=== PATIENT | female | born 1995 | race Caucasian/White ===

== ENCOUNTER 2022-05-22 05:29 | Inpatient (IN) ==
--- NOTE | 2022-05-20 13:04 | Anesthesiology Consultation ---
Date of Service May 20, 2022 Assessment & Plan (1) Encounter for pre-operative examination: COVID screening: Per assessment on 05/20: No known COVID-19 positive contacts or current COVID-19 related symptoms. Travel screen negative. Chart Review Chart Review: data entry manager initiated History Surgery Operation Date: 05/22/22 07:30 Proposed Procedures p Section in LD - Jhon Zimmerman MD Height/Weight Height: 5 ft Weight: 92.079 kg Allergies Allergy/AdvReac Type Severity Reaction Status Date / Time No Known Allergies Allergy Verified 05/20/22 12:38 Medications Home Medications Medication Instructions Recorded Confirmed Last Taken acetaminophen 500 mg tablet 500 - 1,000 mg PO Q6H PRN Pain 05/20/22 05/20/22 Unknown (Acetaminophen Extra Strength) famotidine 20 mg tablet (Pepcid) 20 mg PO UD PRN Acid Reflux 05/20/22 05/20/22 Unknown eygrarfm-[id number]-FA 1 mg 1 tab PO DAILY 05/20/22 05/20/22 Unknown tablet Past Medical History Medical History GERD (gastroesophageal reflux disease) ONLY DURING PREGANCY History of COVID-19 09/2021>SYMPTOMS (COLD SYMTPOMS/RESOLVED) Past Family History Family History Other No family history of adverse response to anesthesia Past Surgical History Surgical History [place] teeth removed Social History Smoking Status: Former smoker Do You Dip or Chew Tobacco: No Smoking End Date: AT AGE 20 Hx Alcohol Use: No (NOT DURING ) substance use type: does not use
[2022-05-22] MEDS ORDERED: ceFAZolin 2,000 MG in SYRINGE 0 ML IV SCH (06:00)
[2022-05-22] MEDS ORDERED: LACTATED RINGER'S 1,000 ML IV SCH ×2 (06:00→09:16)
[2022-05-22] MEDS ORDERED: CITRIC ACID/SODIUM CITRATE 15 ML UDC PO SCH (06:00)
[2022-05-22 06:02] LABS: Basophils # (auto) 0.04 K/uL (0-0.2); Basophils % (auto) 0.3 %; Eosinophils # (auto) 0.13 K/uL (0-0.50); Eosinophils % (auto) 0.9 %; Hematocrit (blood only) 33.9 % (34.1-44.9); Hemoglobin 11.4 g/dl (12.0-16.0); Immature Granulocytes # (auto) 0.18 K/uL (0.00-0.02); Immature Granulocytes % (auto) 1.3 %; Lymphocytes # (auto) 2.88 K/uL (1.2-3.4); Lymphocytes % (auto) 20.5 %; Mean Corpuscular Hemoglobin 29.8 pg (25.0-34.0); Mean Corpuscular Hgb Conc 33.6 g/dL (32.0-36.0); Mean Corpuscular Volume 88.5 fL (80.0-100.0); Mean Platelet Volume 10.9 fL (9.4-12.3); Monocytes # (auto) 1.37 K/uL (0.24-0.82); Monocytes % (auto) 9.7 %; Neutrophils # (auto) 9.47 K/uL (1.4-6.5); Neutrophils % (auto) 67.3 %; Platelet Count 274 K/uL (130-400); RDW Coefficient of Variation 12.8 % (11.5-14.5); RDW Standard Deviation 41.1 fL (36.4-46.3); Red Blood Count 3.83 M/uL (3.93-5.22); White Blood Count 14.07 K/ul (4.8-10.8)
[2022-05-22] MEDS ORDERED: fentaNYL citrate 100 MCG/2 ML VIAL ONE (07:04)
[2022-05-22] MEDS ORDERED: MoRPHine SULFATE PF 1 MG/ML 10 ML AMP/VIAL ONE (07:04)
--- NOTE | 2022-05-22 07:16 | History & Physical Bridge Note ---
Date of Service May 22, 2022 History & Physical Bridge Note I have examined the patient, reviewed the History & Physical and in the interval since the performance of the History & Physical I have noted the following changes of clinical significance: no changes noted
[2022-05-22] MEDS ORDERED: ONDANSETRON INJ 2 MG/ML 2 ML VIAL ONE (07:37)
[2022-05-22] MEDS ORDERED: KETOROLAC 30 MG/ML VIAL ONE (07:37)
[2022-05-22] MEDS ORDERED: OXYTOCIN 10 UNITS/ML VIAL ONE (07:37)
[2022-05-22] MEDS ORDERED: NALBUPHINE HCL INJ 10 MG/ML AMP IV PRN (08:11)
[2022-05-22] MEDS ORDERED: ePHEDrine sulfate 50 MG/ML AMP IV PRN (08:11)
[2022-05-22] MEDS ORDERED: LACTATED RINGER'S 500 ML IV PRN (08:11)
[2022-05-22] MEDS ORDERED: KETOROLAC 30 MG/ML VIAL IV PRN (08:11)
[2022-05-22] MEDS ORDERED: NALOXONE HCL 1 MG in SODIUM CHLORIDE 0.9% 1000ML 1,000 ML IV PRN (08:11)
[2022-05-22] MEDS ORDERED: diphenhydrAMINE 50 MG/ML VIAL IV PRN (08:11)
[2022-05-22] MEDS ORDERED: ONDANSETRON INJ 2 MG/ML 2 ML VIAL IV PRN ×2 (08:11→09:16)
[2022-05-22] MEDS ORDERED: MoRPHine SULFATE PF 1 MG/ML 10 ML AMP/VIAL INT SPINAL ONE (08:11)
[2022-05-22] MEDS ORDERED: NALOXONE HCL 0.08 MG in SYRINGE 1.8 ML IV PRN (08:11)
[2022-05-22] MEDS ORDERED: ACETAMINOPHEN 325 MG TAB PO PRN (08:11)
[2022-05-22] MEDS ORDERED: HYDROmorphone INJ 0.5 MG/0.5 ML SYR IV PRN (08:11)
[2022-05-22] MEDS ORDERED: NALOXONE HCL 0.4 MG/1 ML VIAL/CARP IV PRN (08:11)
[2022-05-22] MEDS ORDERED: PROMETHAZINE HCL 12.5 MG in SODIUM CHLORIDE 0.9% 50 ML IV PRN (08:11)
[2022-05-22] MEDS ORDERED: SODIUM CHLORIDE 0.9% 1000ML 1,000 ML IV SCH (08:15)
[2022-05-22] MEDS ORDERED: DC INTRASPINAL MORPHINE SCH (08:15)
[2022-05-22] MEDS ORDERED: NO NARCOTICS OR SEDATIVES SCH (08:15)
--- NOTE | 2022-05-22 08:42 | Post Operative Brief Note ---
Immediate Post Op Note v1 Date of Surgery May 22, 2022 Pre & Post Diagnosis Operation Date: 05/22/22 07:30 <No data on this case meets the specified criteria> I identified the patient and participated in the time-out.: Yes Procedure Operation Date: 05/22/22 07:30 <No data on this case meets the specified criteria> Surgeon Jhon Zimmerman MD Hr Business Partner Consultant Dr. Bhakta Estimated Blood Loss 500 Findings Consistent with Post-Op Diagnosis live female Apgars and weight pending Fluids LR 900 ml. Specimens placenta Drains Rhodes Catheter Complications nnone Disposition Accompanied Patient To Recovery: Yes Overlapping Procedure I was present for: the critical portions of procedure. I was immediately available: during the entire case. Back up surgeon: used during listed procedure.
--- NOTE | 2022-05-22 08:46 | Anesthesiology Progress Note ---
Date of Service May 22, 2022 Anesthesia Post Procedure Vital Signs Vital Signs: Temp Pulse Resp BP Pulse Ox 05/22/22 07:11 98.2 F 18 05/22/22 08:43 99 05/22/22 08:43 77 05/22/22 08:43 84 144/73 H 05/22/22 07:02 90 138/81 05/22/22 05:58 98.4 F 18 Transfer of Care Handoff Completed per policy Notes Mental Status: alert / awake / arousable and participated in evaluation Patient Amnestic to Procedure: Yes Nausea / Vomiting: adequately controlled Pain: adequately controlled Airway Patency, RR, SpO2: stable & adequate BP & HR: stable & adequate Hydration State: stable & adequate Neuraxial Anesthesia: was administered and sensory block is resolving Anesthetic Complications: no major complications apparent and Pt Satisfied with anesthetic care
[2022-05-22] MEDS ORDERED: FAMOTIDINE 20 MG TAB PO PRN (09:16)
[2022-05-22] MEDS ORDERED: HYDROCORTISONE ACETATE 25 MG SUPP PR PRN (09:16)
[2022-05-22] MEDS ORDERED: MAGNESIUM HYDROXIDE SUSP 30 ML UDC PO PRN (09:16)
[2022-05-22] MEDS ORDERED: PROMETHAZINE HCL 25 MG in SODIUM CHLORIDE 0.9% 50 ML IV PRN (09:16)
[2022-05-22] MEDS ORDERED: DIPHTHERIA/TETANUS/PERTUSSIS 0.5 ML SYR/VIAL IM ONE (09:16)
[2022-05-22] MEDS ORDERED: SENNA 8.6 MG TAB PO PRN (09:16)
[2022-05-22] MEDS ORDERED: NON-FORMULARY MEDICATION (Prenatal Multivit-Min-Fe-Fa 1 mg Tablet) PO SCH (09:16)
[2022-05-22] MEDS ORDERED: BENZOCAINE 20% AER SPR 82.5 GM CAN EXT PRN (09:16)
[2022-05-22] MEDS: OXYTOCIN 20 UNITS in LACTATED RINGER'S 1,000 ML IV SCH ×2 (11:09→20:03)
[2022-05-22] MEDS: SIMETHICONE 80 MG CHEW PO SCH ×2 (16:47→21:20)
[2022-05-22] MEDS: DOCUSATE SODIUM 100 MG CAP PO SCH (21:20)
--- NOTE | 2022-05-23 00:36 | Operative Report (OR) ---
DATE OF SURGERY: 05/22/2022 PREOPERATIVE DIAGNOSES: Term , breech. POSTOPERATIVE DIAGNOSES: Term , breech. PROCEDURE: Primary section, low segment transverse. SURGEON: Jhon Zimmerman MD. QUILL COLLECTOR: Geraldo Bhakta MD. ANESTHESIA: Spinal. COMPLICATIONS: None. FINDINGS: Live female, florina breech presentation, Apgars 2/9, weight pending. DRAINS: Rhodes. ESTIMATED BLOOD LOSS: 500 mL. FLUIDS: 900 mL. URINE OUTPUT: 200 mL. CLINICAL HISTORY: The patient is a 26-year-old female, para 0-0-0-0, at 40 weeks, admitted for an el ective primary section. The patient was scanned prior to the start of the procedure, confir swapna breech presentation. A timeout was called prior to the start of the procedure. Antibiotics wer e given preop. DESCRIPTION OF PROCEDURE: Under satisfactory spinal anesthesia, the patient was prepped and draped i n the usual sterile fashion. Low Pfannenstiel incision was made entering into the abdominal cavity i n successive layers without difficulty. Upon entering into the abdominal cavity, the bladder flap wa s made and this was sharply dissected down with Metzenbaum scissors. A low segment transverse incisi on over the lower uterine segment was made. Incision was widened in the AP diameter. Nicked the amn iotic sac, was noted to be clear. The infant was delivered from the florina breech presentation. The cord was doubly clamped and cut. There was a slight delay in cord clamping before the baby was lucita d to the insulation cupola charger for warming and resuscitation. Cord blood was obtained. Placenta delivered sp ontaneously and intact. Uterus was then exteriorized. Ring forceps were then placed on both angles in the inferior margin. Another ring was used to dilate the cervix. Clean lap was then used to curette the uterus of all jake ts and debris. Pitocin was started in the IV. The uterus was closed in a double layer closure with 0 Vicryl suture in a continuous interlocking fashion followed by second imbricating suture of 0 Vicry l suture. Tubes, ovaries bilaterally were found to be within normal limits. The contents of the pel carlos and abdominal cavity were then irrigated to clear. No active bleeding was noted. The initial sp onge, needle, and instrument count were found to be correct. The uterus was then placed back into th e normal anatomical position. The muscle was then reapproximated with 0 Vicryl in a oqkwwh-nd-fgyte fashion. No active bleeding wa s noted. The fascia was then reapproximated from both ends using 0 Vicryl suture in a continuous fas hion. Subcuticular layer was then irrigated. Bleeders were then cauterized. Subcuticular layer was then closed with 2-0 plain suture followed by jesus for the skin. Clear urine was noted from the Rhodes. The estimated blood loss 500 mL. The final sponge, needle and instrument count were found to be correct. The patient was then placed supine on a stretcher and taken to recovery room in stable c ondition. Please note, Dr. Bhakta was present for the surgery. He was needed for assistance at surgery includin g retraction, help with pushing the baby's abdomen for fundal pressure for delivery of the breech and helped with closure of the uterus and abdomen. Job ID: [id number]
[2022-05-23] MEDS ORDERED: KETOROLAC 30 MG/ML VIAL IV PRN (02:11)
[2022-05-23] MEDS ORDERED: diphenhydrAMINE 50 MG/ML VIAL IV PRN (02:11)
[2022-05-23] MEDS ORDERED: diphenhydrAMINE Capsule 25 MG CAP PO PRN (02:11)
[2022-05-23] MEDS ORDERED: MEPERIDINE HCL 50 MG/ML CARP IV PRN (02:11)
[2022-05-23] MEDS: oxyCODONE/ACETAMINOPHEN 5mg/325mg TAB PO PRN ×4 (03:14→20:47)
[2022-05-23] MEDS: IBUPROFEN 600 MG TAB PO PRN ×4 (03:15→20:48)
[2022-05-23 06:39] LABS: Basophils # (auto) 0.03 K/uL (0-0.2); Basophils % (auto) 0.2 %; Eosinophils # (auto) 0.05 K/uL (0-0.50); Eosinophils % (auto) 0.3 %; Hematocrit (blood only) 29.8 % (34.1-44.9); Hemoglobin 10.2 g/dl (12.0-16.0); Immature Granulocytes # (auto) 0.14 K/uL (0.00-0.02); Immature Granulocytes % (auto) 0.9 %; Lymphocytes # (auto) 1.76 K/uL (1.2-3.4); Lymphocytes % (auto) 10.8 %; Mean Corpuscular Hemoglobin 29.6 pg (25.0-34.0); Mean Corpuscular Hgb Conc 34.2 g/dL (32.0-36.0); Mean Corpuscular Volume 86.4 fL (80.0-100.0); Mean Platelet Volume 10.7 fL (9.4-12.3); Monocytes # (auto) 1.28 K/uL (0.24-0.82); Monocytes % (auto) 7.8 %; Neutrophils # (auto) 13.08 K/uL (1.4-6.5); Platelet Count 252 K/uL (130-400); RDW Coefficient of Variation 12.7 % (11.5-14.5); RDW Standard Deviation 39.8 fL (36.4-46.3); Red Blood Count 3.45 M/uL (3.93-5.22); White Blood Count 16.34 K/ul (4.8-10.8)
[2022-05-23] MEDS: PRENATAL VITAMIN 1 TAB PO SCH (07:44)
[2022-05-23] MEDS: SIMETHICONE 80 MG CHEW PO SCH ×4 (07:44→20:47)
[2022-05-23] MEDS: FERROUS SULFATE 325 MG TAB PO SCH (07:44)
[2022-05-23] MEDS: DOCUSATE SODIUM 100 MG CAP PO SCH ×2 (07:44→20:47)
--- NOTE | 2022-05-23 09:34 | Obstetrical Progress Note ---
Date of Service May 23, 2022 Assessment & Plan (1) delivery delivered: Post op Day #1 pt doing well continue day #1 care Subjective Ambulation: ambulating normally Voiding: no voiding problems Passing Gas:: Yes Diet Tolerance:: clear liquids Lochia:: Small Feeding Type:: breast feeding Review of Systems All systems reviewed & are unremarkable except as noted in HPI & below Physical Exam Constitutional WD/WN, vitals as above well developed and well nourished Eyes PERRL, conjunctivae normal, anicteric sclerae ENMT external ear and nose normal, oropharynx normal Neck trachea midline, no thyromegaly Respiratory normal respiratory effort, lungs clear to auscultation Cardiovascular RRR, no murmur, no edema Chest (Breasts) normal inspection/palpation of breasts Gastrointestinal (Abdomen) normal bowel sounds, soft, nontender, no hepatosplenomegaly Musculoskeletal no cyanosis or clubbing, extremities motor strength 5/5 Skin no rashes, warm and dry + incision (Clean,dry and intact) Neurologic patellar DTR's 2+ bilat, sensation intact Psychiatric A+Ox3, euthymic affect Genitourinary normal external appearance Lymphatic no cervical or axillary lymphadenopathy Results & Data ([facility]) Vital Signs (Past 12 Hours) Vital Signs Temp Pulse Resp BP Pulse Ox O2 Del Method 05/23/22 07:45 36.9 C 87 18 119/79 05/23/22 03:15 37.2 C 92 H 20 127/84 97 Room Air 05/23/22 02:15 16 96 05/23/22 01:15 16 95 05/23/22 00:15 18 96 05/22/22 23:15 18 98 05/22/22 23:04 36.9 C 88 16 115/75 96 Room Air 05/22/22 22:14 18 96
[2022-05-23] MEDS ORDERED: bisacodyL 5 MG TABEC PO SCH (20:00)
[2022-05-24] MEDS: oxyCODONE/ACETAMINOPHEN 5mg/325mg TAB PO PRN ×2 (04:54→11:12)
[2022-05-24] MEDS: IBUPROFEN 600 MG TAB PO PRN ×2 (04:55→11:13)
[2022-05-24 07:10] LABS: Hematocrit (blood only) 26.1 % (34.1-44.9); Hemoglobin 8.6 g/dl (12.0-16.0)
[2022-05-24] MEDS: FERROUS SULFATE 325 MG TAB PO SCH (08:39)
[2022-05-24] MEDS: DOCUSATE SODIUM 100 MG CAP PO SCH (08:39)
[2022-05-24] MEDS: PRENATAL VITAMIN 1 TAB PO SCH (08:39)
[2022-05-24] MEDS: SIMETHICONE 80 MG CHEW PO SCH (08:39)
[2022-05-24] MEDS ORDERED: bisacodyL 10 MG SUPP PR PRN (08:43)
--- NOTE | 2022-05-24 09:51 | Obstetrical Progress Note ---
Date of Service May 24, 2022 Assessment & Plan (1) delivery delivered: POD #2 pt doing well wishes to be dich home Subjective Ambulation: ambulating normally Voiding: no voiding problems Passing Gas:: Yes Diet Tolerance:: clear liquids Lochia:: Small Feeding Type:: breast feeding Review of Systems All systems reviewed & are unremarkable except as noted in HPI & below Physical Exam Constitutional WD/WN, vitals as above well developed and well nourished Eyes PERRL, conjunctivae normal, anicteric sclerae ENMT external ear and nose normal, oropharynx normal Neck trachea midline, no thyromegaly Respiratory normal respiratory effort, lungs clear to auscultation Cardiovascular RRR, no murmur, no edema Chest (Breasts) normal inspection/palpation of breasts Gastrointestinal (Abdomen) normal bowel sounds, soft, nontender, no hepatosplenomegaly Musculoskeletal no cyanosis or clubbing, extremities motor strength 5/5 Skin no rashes, warm and dry + incision (Clean,dry and intact) Neurologic patellar DTR's 2+ bilat, sensation intact Psychiatric A+Ox3, euthymic affect Genitourinary normal external appearance Lymphatic no cervical or axillary lymphadenopathy Results & Data ([facility]) Vital Signs (Past 12 Hours) Vital Signs Temp Pulse Resp BP O2 Del Method 05/24/22 07:15 36.8 C 91 H 20 115/78 Room Air 05/24/22 00:00 36.9 C 85 16 123/79 Room Air
== END 2022-05-24 11:35 | disposition home or self-care (01) | DRG 788 ==
LOC: 4S1 05:29 → EDSTATUS 07:30 → 4E2 12:12
DX: O32.1XX0 Maternal care for breech presentation, not applicable or unspecified; Z3A.40 40 weeks gestation of pregnancy; Z37.0 Single live birth; O48.0 Post-term pregnancy

== ENCOUNTER 2023-07-07 05:25 | Inpatient (IN) ==
--- NOTE | 2023-06-29 10:07 | Anesthesiology Consultation ---
Date of Service June 29, 2023 Assessment & Plan (1) Encounter for pre-operative examination: Plan - 05/22/22: SAB L3-L4 1 attempt. - Per medical manager on 06/29/2023: No known infectious disease contacts, current infectious disease symptoms in past 10 days or COVID positive test result in the past 90 days. Chart Review Chart Review: medical charge entry specialist initiated History Surgery Operation Date: 07/07/23 07:30 Proposed Procedures p Repeat Section - Lane Olsen MD Height/Weight Height: 5 ft 8 in Weight: 87.997 kg Allergies Allergy/AdvReac Type Severity Reaction Status Date / Time No Known Allergies Allergy Verified 06/29/23 09:24 Medications Home Medications Medication Instructions Recorded Confirmed Last Taken famotidine 20 mg tablet (Pepcid) 20 mg PO UD PRN Acid Reflux 05/20/22 06/29/23 05/22/22 [id number]-sti-[id number]-FA 1 mg 1 tab PO DAILY 05/20/22 06/29/23 05/21/22 tablet Past Medical History Medical History (Updated 06/29/23 @ 10:07 by Patricia Leach PA-C) GERD (gastroesophageal reflux disease) during per PAT RN History of COVID-19 09/2021>SYMPTOMS (COLD SYMPTOMS/RESOLVED) Past Family History Family History Other No family history of adverse response to anesthesia Past Surgical History Surgical History (Updated 06/29/23 @ 09:26 by Rona Soria) Hx of section [place] teeth removed Social History Smoking Status: Never smoker Do You Dip or Chew Tobacco: No Hx Alcohol Use: Yes (not while ) alcohol intake frequency: holidays/special occasions only Hx Substance Use: No substance use type: does not use
[2023-07-07] MEDS ORDERED: LACTATED RINGER'S 1,000 ML IV SCH ×2 (05:45→09:45)
[2023-07-07 05:56] LABS: Hematocrit (blood only) 32.2 % (37.0-47.0); Hemoglobin 11.2 g/dl (12.0-16.0); Mean Corpuscular Hemoglobin 30.2 pg (25.0-34.0); Mean Corpuscular Hgb Conc 34.8 g/dL (32.0-36.0); Mean Corpuscular Volume 86.8 fL (80.0-100.0); Mean Platelet Volume 11.1 fL (9.4-12.4); Platelet Count 184 K/uL (130-400); RDW Coefficient of Variation 13.7 % (11.5-14.5); Red Blood Count 3.71 M/uL (4.20-5.40); White Blood Count 11.82 K/ul (4.8-10.8)
[2023-07-07] MEDS ORDERED: INFLUENZA VIRUS QUADRIVALENT VACCINE (IIV4) 0.5 ML SYR IM ONE (05:57)
[2023-07-07] MEDS ORDERED: CITRIC ACID/SODIUM CITRATE 15 ML UDC PO SCH (06:00)
[2023-07-07] MEDS ORDERED: ceFAZolin 2000MG 2,000 MG/15 ML SYR IV SCH (06:00)
[2023-07-07 06:22] LABS: Basophils # (auto) 0.07 K/uL (0.00-0.20); Basophils % (auto) 0.6 %; Eosinophils # (auto) 0.05 K/uL (0.00-0.50); Eosinophils % (auto) 0.4 %; Immature Granulocytes # (auto) 0.11 K/uL (0.01-0.20); Immature Granulocytes % (auto) 0.9 %; Lymphocytes # (auto) 5.31 K/uL (1.20-3.40); Lymphocytes % (auto) 44.9 %; Monocytes # (auto) 0.96 K/uL (0.11-0.59); Monocytes % (auto) 8.1 %; Neutrophils # (auto) 5.32 K/uL (1.40-6.50); Neutrophils % (auto) 45.1 %; Polychromasia 1+
[2023-07-07] MEDS ORDERED: OXYTOCIN 10 UNITS/ML VIAL ONE (06:53)
[2023-07-07] MEDS ORDERED: ONDANSETRON INJ 2 MG/ML 2 ML VIAL ONE (06:53)
[2023-07-07] MEDS ORDERED: fentaNYL citrate PF 100 MCG/2 ML VIAL ONE (06:53)
[2023-07-07] MEDS ORDERED: KETOROLAC 30 MG/ML VIAL ONE (06:53)
[2023-07-07] MEDS ORDERED: MoRPHine SULFATE PF 1 MG/ML 10 ML AMP/VIAL ONE (06:53)
[2023-07-07] MEDS ORDERED: PHENYLEPHRINE HCL 10 MG/ML VIAL ONE (06:53)
--- NOTE | 2023-07-07 07:42 | History & Physical Bridge Note ---
Date of Service July 07, 2023 History & Physical Bridge Note I have examined the patient, reviewed the History & Physical and in the interval since the performance of the History & Physical I have noted the following changes of clinical significance: no changes noted
[2023-07-07] MEDS ORDERED: NALOXONE HCL 1 MG in SODIUM CHLORIDE 0.9% 1,000 ML IV PRN (08:24)
[2023-07-07] MEDS ORDERED: MoRPHine SULFATE PF 1 MG/ML 10 ML AMP/VIAL INT SPINAL ONE (08:24)
[2023-07-07] MEDS ORDERED: NALOXONE HCL 0.4 MG/1 ML VIAL/CARP IV PRN (08:24)
[2023-07-07] MEDS ORDERED: LACTATED RINGER'S 500 ML IV PRN (08:24)
[2023-07-07] MEDS ORDERED: diphenhydrAMINE 50 MG/ML VIAL IV PRN (08:24)
[2023-07-07] MEDS ORDERED: KETOROLAC 30 MG/ML VIAL IV PRN (08:24)
[2023-07-07] MEDS ORDERED: ePHEDrine sulfate 50 MG/ML AMP IV PRN (08:24)
[2023-07-07] MEDS ORDERED: NALOXONE HCL 0.08 MG in SYRINGE 1.8 ML IV PRN (08:24)
[2023-07-07] MEDS ORDERED: NALBUPHINE HCL INJ 10 MG/ML AMP IV PRN (08:24)
[2023-07-07] MEDS ORDERED: ACETAMINOPHEN 1,000 MG/100 ML VIAL IV PRN (08:24)
[2023-07-07] MEDS ORDERED: HYDROmorphone INJ 0.5 MG/0.5 ML SYR IV PRN (08:24)
[2023-07-07] MEDS ORDERED: PROMETHAZINE HCL 12.5 MG in SODIUM CHLORIDE 0.9% 50 ML IV PRN (08:24)
[2023-07-07] MEDS ORDERED: ONDANSETRON INJ 2 MG/ML 2 ML VIAL IV PRN (08:24)
[2023-07-07] MEDS ORDERED: NO NARCOTICS OR SEDATIVES SCH (08:30)
[2023-07-07] MEDS ORDERED: DC INTRASPINAL MORPHINE SCH (08:30)
[2023-07-07] MEDS ORDERED: SODIUM CHLORIDE 0.9% 1,000 ML IV SCH (08:30)
[2023-07-07] MEDS ORDERED: OXYTOCIN 10 UNITS/ML 10ML VIAL IM ONE (09:12)
[2023-07-07 09:25] LABS: Base Excess Cord Arterial Bld -2.4 mEq/L (-9-1.8); CO2 Cord Arterial Blood 42 mmHg (39.1-73.5); HCO3 Cord Arterial Blood 23 mmol/L (19.7-28.5); Oxygen Sat Cord Arterial Blood < 60.0 % (<60); PO2 Cord Arterial Blood < 20 mmHg (4.1-31.7); pH Cord Arterial Blood 7.35 (7.1-7.38)
[2023-07-07 09:26] LABS: Base Excess Cord Venous Blood -4.4 mEq/L (-7.7-1.9); Cord Venous Blood HCO3 20 mmol/L (18.4-26.8); Cord Venous Blood PCO2 35 mmHg (30.4-57.2); Cord Venous Blood PO2 41 mmHg (14.1-43.3); Cord Venous Blood pH 7.37 (7.20-7.44); O2 Saturation Cord Venous Bld 79.2 % (<68)
[2023-07-07] MEDS ORDERED: DIPHTHERIA/TETANUS/PERTUSSIS Vaccine (Tdap, Age 7+yrs) 0.5mL SYR/VL IM ONE (09:44)
[2023-07-07] MEDS ORDERED: BENZOCAINE 20% SPRY 85 APPLN/85 GM CAN EXT PRN (09:44)
[2023-07-07] MEDS ORDERED: SENNA 8.6 MG TAB PO PRN (09:44)
[2023-07-07] MEDS ORDERED: MAGNESIUM HYDROXIDE SUSP 30 ML UDC PO PRN (09:44)
[2023-07-07] MEDS ORDERED: HYDROCORTISONE ACETATE 25 MG SUPP PR PRN (09:44)
--- NOTE | 2023-07-07 09:55 | Operative Report ---
Post Operative Report Pre & Post Diagnosis Operation Date: 07/07/23 07:30 Pre-Op Diagnosis: Previous Post-Op Diagnosis: Previous I identified the patient and participated in the time-out.: Yes Procedure Operation Date: 07/07/23 07:30 Actual Procedures p Repeat Section of live female child at 0843 - Lane Olsen MD Surgeon Lane Olsen MD Therapy Aide Hailey HERNANDEZ Estimated Blood Loss 500 Findings Consistent with Post-Op Diagnosis Live in cephalic presentation. Mild meconium on AROM> uterus, tubes and adnexa appeared grossly nml. Minimal adhesions from prior surgery Fluids IVF; 1200ml EBL; 500 Urine output 250 clear urine at end of procedure Specimens Cord, blood and gasses Drains none Anesthesia Type Spinal Complications none Indications at term Prior section. Wishes to have repeat Description of Procedure Patient brought to the operating room Prepped and draped in normal sterile fashion in dorsal supine position with a leftward tilt. Time out is performed. Patient is identified by name and date of . Allergy and antibiotics and reviewed and confirmed. Skin check is performed to see if anesthesia is adequate A Pfannenstiel incision is made and carried out to the fascia with a scalpel. Fascia is incised in the midline extended laterally on both sides with Rothman scissors. Linda's were used to grab the superior part of the fascial incision and the rectus abdominis muscle dissected with Rothman scissors.. Same procedure was performed on the lower section of the fascia. The rectus muscle is then in the midline and the peritoneum identified, tented up and entered sharply with the Metzenbaum scissors. The peritoneal incision was then extended superiorly and inferiorly with good visualization of the bladder. An Andrew retractor was then inserted to provide better visualization and retraction. Vesicouterine peritoneum was identified, grasped with pickups and entered sharply with Metzenbaum scissors. The incision was then extended laterally and the bladder flap created with Metzenbaum scissors. The lower uterine segment incision was performed in a transverse fashion with a scalpel. Uterine incision was then extended laterally with the bandage scissors. Amniotomy is performed. Amniotic fluid is mildly meconium stained. The infant's head was delivered atraumatically. There were 2 tight nuchal cord that could not be easily reduced. This was therefore clamped and cut . Nose and mouth suctioned with the bulb suction. Infant is handed over to the waiting pediatric team. Cord blood and gases obtained The placenta is then removed manually the uterus is exteriorized and cleared of all clots and debris. Uterine incision it repaired with 0-Vicryl in a locking fashion. A second layer of 0-Vicryl is used to obtain excellent hemostasis. Uterus is placed back into the abdominal cavity. The bladder flap was repaired in a running fashion with plain suture. Copious amount of irrigation was used to irrigate the abdomen. Gutters were cleared of all clots and debris . Hemostasis was obtained. The Anrdew retractor is removed as well as sponges or instruments in the abdomen. The peritoneum was identified and closed in a running fashion using plain suture. The rectus abdominis muscle was examined to ensure there no bleeding. The rectus abdominis muscle was approximated loosely using plain suture in a jwekci-qe-yxyno manner. Once again hemostasis is confirmed. The fascia was grasped with Houston's and closed in a running fashion. Both fascial layers are closed together using 0-Vicryl suture. Subcutaneous space is irrigated and hemostasis was confirmed. Subcutaneous space is approximated with plain suture. Skin is closed with jesus. The patient tolerated procedure well sponge just labs needle counts were correct x2 patient is sent to recovery in stable condition I attest to the content of the Intraoperative Record and any orders documented therein. Any exceptions are noted below. Therapy Aide was necessary for retraction and manipulation of instruments in order to provide for a safe operation
--- NOTE | 2023-07-07 09:58 | Anesthesiology Progress Note ---
Date of Service July 07, 2023 Anesthesia Post Procedure Vital Signs Vital Signs: Temp Pulse Resp BP Pulse Ox 07/07/23 09:56 57 L 99 07/07/23 09:51 54 L 96 07/07/23 09:47 56 L 124/66 07/07/23 09:46 63 100 07/07/23 09:41 63 100 07/07/23 09:38 60 94 07/07/23 09:36 62 99 07/07/23 09:37 62 127/64 07/07/23 07:00 20 07/07/23 07:00 98.1 F 20 07/07/23 06:55 57 L 123/75 07/07/23 06:04 98.2 F 63 126/73 Transfer of Care Handoff Completed per policy Notes Mental Status: alert / awake / arousable and participated in evaluation Patient Amnestic to Procedure: No Nausea / Vomiting: adequately controlled Pain: adequately controlled Airway Patency, RR, SpO2: stable & adequate BP & HR: stable & adequate Hydration State: stable & adequate Neuraxial Anesthesia: was administered and sensory block is resolving Anesthetic Complications: no major complications apparent and Pt Satisfied with anesthetic care
[2023-07-07] MEDS ORDERED: miSOPROStoL 200 MCG TAB PR ONE (10:00)
[2023-07-07] MEDS ORDERED: OXYTOCIN 20 UNITS in LACTATED RINGER'S 1,000 ML IV SCH (10:30)
[2023-07-07] MEDS: SIMETHICONE 80 MG CHEW PO SCH ×3 (12:23→21:27)
[2023-07-07] MEDS ORDERED: miSOPROStoL 200 MCG TAB ONE (12:55)
[2023-07-07] MEDS: DOCUSATE SODIUM 100 MG CAP PO SCH (21:27)
[2023-07-08] MEDS ORDERED: ONDANSETRON INJ 2 MG/ML 2 ML VIAL IV PRN (02:24)
[2023-07-08] MEDS ORDERED: diphenhydrAMINE 50 MG/ML VIAL IV PRN (02:24)
[2023-07-08] MEDS ORDERED: diphenhydrAMINE Capsule 25 MG CAP PO PRN (02:24)
[2023-07-08] MEDS ORDERED: PROMETHAZINE HCL 25 MG in SODIUM CHLORIDE 0.9% 50 ML IV PRN (02:24)
[2023-07-08] MEDS: oxyCODONE/ACETAMINOPHEN 5mg/325mg TAB PO PRN ×5 (02:55→21:48)
[2023-07-08] MEDS: IBUPROFEN 600 MG TAB PO PRN ×5 (02:55→21:48)
[2023-07-08 06:18] LABS: Basophils # (auto) 0.06 K/uL (0.00-0.20); Basophils % (auto) 0.6 %; Eosinophils # (auto) 0.03 K/uL (0.00-0.50); Eosinophils % (auto) 0.3 %; Hemoglobin 10.1 g/dl (12.0-16.0); Immature Granulocytes # (auto) 0.08 K/uL (0.01-0.20); Immature Granulocytes % (auto) 0.7 %; Lymphocytes # (auto) 3.83 K/uL (1.20-3.40); Lymphocytes % (auto) 35.3 %; Mean Corpuscular Hemoglobin 29.4 pg (25.0-34.0); Mean Corpuscular Hgb Conc 33.7 g/dL (32.0-36.0); Mean Corpuscular Volume 87.5 fL (80.0-100.0); Mean Platelet Volume 10.7 fL (9.4-12.4); Monocytes # (auto) 0.83 K/uL (0.11-0.59); Monocytes % (auto) 7.7 %; Neutrophils # (auto) 6.01 K/uL (1.40-6.50); Neutrophils % (auto) 55.4 %; Platelet Count 182 K/uL (130-400); RDW Coefficient of Variation 13.9 % (11.5-14.5); RDW Standard Deviation 43.1 fL (36.4-46.3); Red Blood Count 3.43 M/uL (4.20-5.40); White Blood Count 10.84 K/ul (4.8-10.8)
--- NOTE | 2023-07-08 08:18 | Obstetrical Progress Note ---
Date of Service July 08, 2023 Assessment & Plan (1) Normal course: Continue routine care Anticipate discharge home tomorrow Subjective Ambulation: ambulating normally Voiding: no voiding problems Passing Gas:: Yes Diet Tolerance:: clear liquids Lochia:: Small Feeding Type:: breast feeding Current Pain Level(1-10): 0 Patient doing well at this time, has not had a regular diet, but planning to get breakfast this morning. Is pumping and supplementing with formula No other complaints at this time Physical Exam Constitutional WD/WN, vitals as above Respiratory normal respiratory effort, lungs clear to auscultation Cardiovascular RRR, no murmur, no edema Gastrointestinal (Abdomen) normal bowel sounds, soft, nontender, no hepatosplenomegaly Incision covered with simba dressing, dry Skin no rashes, warm and dry Results & Data Vital Signs (Past 12 Hours) Vital Signs Temp Pulse Resp BP Pulse Ox O2 Del Method 07/08/23 02:25 16 98 07/08/23 03:15 36.8 C 81 20 126/82 98 Room Air 07/08/23 01:18 16 94 07/08/23 00:30 16 98 07/07/23 23:40 16 95 07/07/23 22:55 36.7 C 73 18 110/72 95 Room Air 07/07/23 22:30 18 96 07/07/23 21:30 18 95 Laboratory Results Laboratory Results WBC 10.84 K/ul (4.8-10.8) H 07/08/23 06:04 RBC 3.43 M/uL (4.20-5.40) L 07/08/23 06:04 Hgb 10.1 g/dl (12.0-16.0) L 07/08/23 06:04 Hct 30.0 % (37.0-47.0) L 07/08/23 06:04 MCV 87.5 fL (80.0-100.0) 07/08/23 06:04 MCH 29.4 pg (25.0-34.0) 07/08/23 06:04 MCHC 33.7 g/dL (32.0-36.0) 07/08/23 06:04 RDW Std Deviation 43.1 fL (36.4-46.3) 07/08/23 06:04 RDW Coeff of [place] 13.9 % (11.5-14.5) 07/08/23 06:04 Plt Count 182 K/uL (130-400) 07/08/23 06:04 MPV 10.7 fL (9.4-12.4) 07/08/23 06:04 Immature Gran % (Auto) 0.7 % 07/08/23 06:04 Neut % (Auto) 55.4 % 07/08/23 06:04 Lymph % (Auto) 35.3 % 07/08/23 06:04 [place] % (Auto) 7.7 % 07/08/23 06:04 Eos % (Auto) 0.3 % 07/08/23 06:04 Baso % (Auto) 0.6 % 07/08/23 06:04 Neut # (Auto) 6.01 K/uL (1.40-6.50) 07/08/23 06:04 Lymph # (Auto) 3.83 K/uL (1.20-3.40) H 07/08/23 06:04 [place] # (Auto) 0.83 K/uL (0.11-0.59) H 07/08/23 06:04 Eos # (Auto) 0.03 K/uL (0.00-0.50) 07/08/23 06:04 Baso # (Auto) 0.06 K/uL (0.00-0.20) 07/08/23 06:04 Immature Gran # (Auto) 0.08 K/uL (0.01-0.20) 07/08/23 06:04 Polychromasia 1+ 07/07/23 05:41 Cord ABG pH 7.35 (7.1-7.38) 07/07/23 08:43 Cord ABG pCO2 42 mmHg (39.1-73.5) 07/07/23 08:43 Cord ABG pO2 < 20 mmHg (4.1-31.7) 07/07/23 08:43 Cord ABG HCO3 23 mmol/L (19.7-28.5) 07/07/23 08:43 Cord ABG Base Excess -2.4 mEq/L (-9-1.8) 07/07/23 08:43 Cord ABG O2 Sat < 60.0 % (<60) 07/07/23 08:43 Cord VBG pH 7.37 (7.20-7.44) 07/07/23 08:43 Cord VBG pCO2 35 mmHg (30.4-57.2) 07/07/23 08:43 Cord VBG pO2 41 mmHg (14.1-43.3) 07/07/23 08:43 Cord VBG HCO3 20 mmol/L (18.4-26.8) 07/07/23 08:43 Cord VBG Base Excess -4.4 mEq/L (-7.7-1.9) 07/07/23 08:43 Cord VBG O2 Sat 79.2 % (<68) H 07/07/23 08:43 Blood Gas Comments BURNS 07/07/23 08:43 Blood Gas Comments BURNS 07/07/23 08:43 Blood Type A Positive 07/07/23 05:41 Antibody Screen NEGATIVE 07/07/23 05:41
[2023-07-08] MEDS: SIMETHICONE 80 MG CHEW PO SCH ×4 (09:15→21:47)
[2023-07-08] MEDS: PRENATAL VITAMIN 1 TAB PO SCH (09:17)
[2023-07-08] MEDS: DOCUSATE SODIUM 100 MG CAP PO SCH ×2 (09:18→21:48)
[2023-07-08] MEDS: FERROUS SULFATE 325 MG TAB PO SCH (09:18)
[2023-07-08] MEDS ORDERED: bisacodyL 5 MG TABEC PO SCH (20:00)
[2023-07-09] MEDS: oxyCODONE/ACETAMINOPHEN 5mg/325mg TAB PO PRN ×2 (05:41→10:32)
[2023-07-09] MEDS: IBUPROFEN 600 MG TAB PO PRN ×2 (05:42→10:32)
[2023-07-09 07:38] VITALS: BP 132/81; PULSE 82; RESP 16; TEMP 98.2; O2SAT 96
[2023-07-09 07:45] LABS: Hemoglobin 9.8 g/dl (12.0-16.0)
[2023-07-09] MEDS: DOCUSATE SODIUM 100 MG CAP PO SCH (08:23)
[2023-07-09] MEDS: FERROUS SULFATE 325 MG TAB PO SCH (08:24)
[2023-07-09] MEDS: PRENATAL VITAMIN 1 TAB PO SCH (08:24)
[2023-07-09] MEDS: SIMETHICONE 80 MG CHEW PO SCH (08:25)
[2023-07-09] MEDS ORDERED: bisacodyL 10 MG SUPP PR PRN (09:44)
--- NOTE | 2023-07-09 09:48 | Obstetrical Progress Note ---
Date of Service July 09, 2023 Subjective Ambulation: ambulating normally Voiding: no voiding problems Passing Gas:: Yes Diet Tolerance:: regular diet Lochia:: Small Feeding Type:: breast feeding Current Pain Level(1-10): 0 doing well Physical Exam Constitutional WD/WN, vitals as above Gastrointestinal (Abdomen) Inspection/Auscultation: abdomen normal to inspection and + abdominal surgical incision Musculoskeletal Extremities: extremities normal to inspection Skin no rashes, warm and dry Neurologic patellar DTR's 2+ bilat, sensation intact Psychiatric A+Ox3, euthymic affect Results & Data Vital Signs (Past 12 Hours) Vital Signs Temp Pulse Resp BP Pulse Ox O2 Del Method 07/09/23 09:41 36.8 C 82 16 132/81 96 07/09/23 09:18 36.8 C 82 16 132/81 96 07/09/23 07:00 36.8 C 82 16 132/81 96 Room Air 07/09/23 03:00 36.7 C 92 H 18 115/71 Room Air Laboratory Results 07/07/23 07/07/23 07/07/23 05:41 05:41 08:43 WBC 11.82 H RBC 3.71 L Hgb 11.2 L Hct 32.2 L MCV 86.8 MCH 30.2 MCHC 34.8 RDW Std Deviation 42.0 RDW Coeff of [place] 13.7 Plt Count 184 MPV 11.1 Immature Gran % (Auto) 0.9 Neut % (Auto) 45.1 Lymph % (Auto) 44.9 [place] % (Auto) 8.1 Eos % (Auto) 0.4 Baso % (Auto) 0.6 Neut # (Auto) 5.32 Lymph # (Auto) 5.31 H [place] # (Auto) 0.96 H Eos # (Auto) 0.05 Baso # (Auto) 0.07 Immature Gran # (Auto) 0.11 Polychromasia 1+ Cord ABG pH 7.35 Cord ABG pCO2 42 Cord ABG pO2 < 20 Cord ABG HCO3 23 Cord ABG Base Excess -2.4 Cord ABG O2 Sat < 60.0 Cord VBG pH Cord VBG pCO2 Cord VBG pO2 Cord VBG HCO3 Cord VBG Base Excess Cord VBG O2 Sat Blood Gas Comments BURNS Blood Type A Positive Antibody Screen NEGATIVE 07/07/23 07/08/23 07/09/23 08:43 06:04 07:25 WBC 10.84 H RBC 3.43 L Hgb 10.1 L 9.8 L Hct 30.0 L 29.0 L MCV 87.5 MCH 29.4 MCHC 33.7 RDW Std Deviation 43.1 RDW Coeff of [place] 13.9 Plt Count 182 MPV 10.7 Immature Gran % (Auto) 0.7 Neut % (Auto) 55.4 Lymph % (Auto) 35.3 [place] % (Auto) 7.7 Eos % (Auto) 0.3 Baso % (Auto) 0.6 Neut # (Auto) 6.01 Lymph # (Auto) 3.83 H [place] # (Auto) 0.83 H Eos # (Auto) 0.03 Baso # (Auto) 0.06 Immature Gran # (Auto) 0.08 Polychromasia Cord ABG pH Cord ABG pCO2 Cord ABG pO2 Cord ABG HCO3 Cord ABG Base Excess Cord ABG O2 Sat Cord VBG pH 7.37 Cord VBG pCO2 35 Cord VBG pO2 41 Cord VBG HCO3 20 Cord VBG Base Excess -4.4 Cord VBG O2 Sat 79.2 H Blood Gas Comments BURNS Blood Type Antibody Screen
== END 2023-07-09 10:45 | disposition home or self-care (01) | DRG 788 ==
LOC: 4S1 05:25 → MERGE 07:30 → EDSTATUS 07:30 → 4E2 12:45